=== PATIENT | female | born 1995 | race Caucasian/White ===

== ENCOUNTER 2018-10-07 13:30 | Emergency (ER) | payer MEDICAID ==
[~2018-10-07] VITALS: Ht 160 cm; Wt 68.0 kg
[2018-10-07 13:39] VITALS: BP 129/61
--- NOTE | 2018-10-07 13:39 | NUR ---
PT BIBA FOR SIEZURE. PER [facility] PT HAD SIEZURE AT [employer] LASTING APPROXIMATELY 2 MINUTES, PT WAS SITTING IN [place] AND SLIPPED ONTO FLOOR WHILE HAVING SEIZRE. PT AAOX2 AT THIS TIME. BRUISING PRESENT ON PT FOREHEAD, AND BLOOD AROUND PT MOUTH. PT STATES SHE HAD HER 1ST SIEZURE 1 MONTH AGO, DENIES MEDICATION. PT TACHYCARDIC AT IN 130'S ER MD MADE AWARE. ER MD TO SEE PT. MEDHX:SIEZURE RX:DENIES
[2018-10-07] MEDS ORDERED: NACL 0.9% 1,000 ML IV ONE (14:16)
--- NOTE | 2018-10-07 14:27 | NUR ---
PT TO CT SCAN VIA [facility].
[2018-10-07 14:49] LABS: BASOPHILS % (AUTO) 0.2 % (0.0-2.0); EOSINOPHILS # (AUTO) 0.1 K/uL (0-0.4); EOSINOPHILS % (AUTO) 0.5 % (0.0-4.0); HEMATOCRIT 37.1 % (36-48); HEMOGLOBIN 12.5 g/dL (12.0-16.0); LYMPHOCYTES % (AUTO) 19.2 % (20.5-51.1); MEAN CORPUSCULAR HEMOGLOBIN 30 pg (27-31); MEAN CORPUSCULAR HGB CONC 34 g/dL (33-37); MEAN CORPUSCULAR VOLUME 88.3 fL (80-94); MONOCYTES # (AUTO) 0.6 K/uL (0.8-1.0); MONOCYTES % (AUTO) 6.3 % (1.7-9.3); NEUTROPHILS # (AUTO) 7.6 K/uL (1.8-7.7); NEUTROPHILS % (AUTO) 73.8 % (42.2-75.2); PLATELET COUNT (AUTO) 333 K/uL (140-450); RED CELL DISTRIBUTION WIDTH 13.2 % (11.6-13.7); WHITE BLOOD COUNT (AUTO) 10.3 K/uL (4.8-10.8)
[2018-10-07 15:06] LABS: ANION GAP 14.6 (8-16); CARBON DIOXIDE 24.7 mmol/L (21-32); CREATININE 0.8 mg/dL (0.6-1.3); MAGNESIUM 2.4 mg/dL (1.8-2.4); POTASSIUM 4.3 mmol/L (3.5-5.1)
--- NOTE | 2018-10-07 15:07 | NUR ---
US AT BEDSIDE AT THIS TIME.
[2018-10-07 15:12] LABS: ALBUMIN 3.9 g/dL (3.4-5.0); TOTAL BILIRUBIN 0.4 mg/dL (0.0-1.0)
[2018-10-07] MEDS ORDERED: LORazepam 1 MG TAB PO ONE (15:35)
--- NOTE | 2018-10-07 16:04 | NUR ---
po meds given-nadr at this time
[2018-10-07 16:06] LABS: BILIRUBIN,URINE NEGATIVE (NEGATIVE); BLOOD, URINE 3+ (NEGATIVE); COLOR,URINE YELLOW (YELLOW); LEUKOCYTE ESTERASE ,URINE NEGATIVE (NEGATIVE); NITRITE, URINE POSITIVE (NEGATIVE); UGLUCOSE NEGATIVE (NEGATIVE)
[2018-10-07 16:07] LABS: APPEARANCE,URINE HAZY (CLEAR)
[2018-10-07 16:15] LABS: RBC,URINE 11-20 (MOD) /HPF (0-5); WBC,URINE 0-5 /HPF (0-5)
[2018-10-07 16:23] LABS: BARBITURATE, URINE NEG. ng/ml (NEG <=200); BENZODIAZEPINE, URINE NEG. ng/mL (NEG <=200); CANNABINOID, URINE POS. ng/mL (NEG <=50); COCAINE, URINE NEG. ng/mL (NEG <=300); OPIATE, URINE NEG. ng/mL (NEG <=2000); PHENCYCLIDINE SCREEN,URINE NEG. ng/mL (NEG <=25)
[2018-10-07 17:04] VITALS: BP 132/87
--- NOTE | 2018-10-07 17:04 | NUR ---
Patient discharged with v/s stable. Written and verbal after care instructions given and explained. Patient verbalized understanding. Ambulatory with steady gait. All questions addressed prior to discharge. Advised to follow up with PMD. PT TO GO HOME WITH FAMILY
--- NOTE | 2018-10-15 13:01 | NUR ---
Late entry. Confirmed with RN that 100ml/hr 0.9NS IV infused until 1700.
== END 2018-10-07 17:04 | disposition home or self-care (01) ==
LOC: MED 13:30
DX: G40.909 Epilepsy, unspecified, not intractable, without status epilepticus (principal); N94.6 Dysmenorrhea, unspecified; E87.2 Acidosis
CPT/HCPCS: 36415; 70450; 71045; 76856; 80053; 80305; 81001; 81025; 83605; 83735; 84484; 84702; 85025; 86900; 86901; 87086; 93005; 99284; G0482; J7030; Q0092